=== PATIENT | male | born 1960 | race Caucasian/White ===

== ENCOUNTER 2016-06-09 18:10 | Inpatient (IN) | payer BC ==
[~2016-06-09] VITALS: Ht 175.3 cm; Wt 97.5 kg
--- NOTE | ~2016-06-09 | DS ---
PATIENT'S NAME: MORALES ELY [facility] AGE: 56 Y [address] ROOM: [address] [address] LOCATION: [facility] ADMIT DATE: 06/09/2016 Discharge Summary DISCHARGE DATE: 06/12/2016 FAMILY PHYSICIAN: Nicko Nielsen MD ATTENDING PHYSICIAN: Gordon Noel DIAGNOSES: 1. Ruptured acute appendicitis. 2. Periappendiceal abscess. 3. Hyperglycemia. SUMMARY: Morales Ely is a 56-year-old male, who presented with abdominal pain and low-grade fevers. He had symptoms for 2 to 3 days prior to admission. The patient had a CT scan done that showed evidence of ruptured appendicitis with a 3-cm periappendiceal fluid collection. Dr. Noel evaluated the patient and discussed options for CT-guided drainage with IV antibiotics versus proceeding with surgery. The patient opted to go ahead and proceed with an appendectomy. The patient received Invanz 1 g IV preoperatively. The patient was taken to the operating room for laparoscopic appendectomy. The patient was found to have ruptured appendicitis with periappendiceal abscess. Please see Dr. Noel's operative note for specifics. Postoperatively, the patient is continued on Zosyn 3.375 g IV q.6 hours. He was allowed activity as tolerated. He was started on clear liquid diet. Percocet, ibuprofen, and Tylenol were ordered for pain control. On postop day 1, the patient's pain was tolerable. Nausea was better. He was afebrile. Vital signs were stable. LABORATORY DATA: Lab work showed white blood cell count of 9.7, glucose was 280. Accu-Cheks were ordered along with an insulin sliding scale. Lovenox was ordered for DVT prophylaxis. On postop day 2, the patient was passing flatus. He had some bloating with clear liquids, but he did want some toast. He continued to be afebrile. Hemoglobin A1c returned at 10.3. A special education paraeducator was consulted and diet was advanced to full liquids as tolerated. The special education paraeducator did give the patient a Contour Next Glucometer and instructed the patient on its use. Later that day, the patient was advanced to a regular diabetic diet. On June 12, the patient continued to do well. IBETH drain that had been left in the time of surgery was removed and arrangements were made for the patient to discharge home. DISCHARGE INSTRUCTIONS: Included no restrictions on diet or activity. He is to follow up with Dr. Nielsen in 4 to 8 days and follow up with Dr. Noel in the [facility] in 20 days. DISCHARGE MEDICATIONS: 1. Percocet 5/325 1 to 2 p.o. q. 4 hours p.r.n. pain dispensing 30 with no refills. PATIENT'S NAME: MORALES ELY [facility] AGE: 56 Y [address] ROOM: [address] [address] LOCATION: [facility] ADMIT DATE: 06/09/2016 Discharge Summary DISCHARGE DATE: 06/12/2016 FAMILY PHYSICIAN: Nicko Nielsen MD ATTENDING PHYSICIAN: Gordon Noel 2. Augmentin 875 mg p.o. b.i.d. x6 days dispensing 12 with no refills. 3. Contour Next test strips testing blood sugars twice daily, dispensing 60 and was also prescribed along with the Nataly Microlet Lancets, dispensing 60. Final pathology results show acute appendicitis with necrosis and acute serositis consistent with history of rupture. For specifics on day-to-day care, please refer to the hospital chart. JAS CONTRERAS PA-C FOR GORDON NOEL MD KDK/modl /[id number] CC: Nicko Nielsen MD d: 06/18/16 1227 t: 06/23/16 0711, DISCHARGE SUMMARY
--- NOTE | ~2016-06-09 | HP ---
PATIENT'S NAME: JUVENCIO ELY [facility] AGE: 56 Y [address] ROOM: [place] [address] [place] [facility] [place]: 06/09/2016 History & Physical DISCHARGE DATE: 06/12/2016 FAMILY PHYSICIAN: Nicko Nielsen MD ATTENDING PHYSICIAN: Gordon Lambert Corrected referring physician 06/13/16 AO DATE OF SERVICE: 06/09/2016 REQUESTING PHYSICIAN: Dr. Nielsen. CHIEF COMPLAINT: Ruptured appendicitis. HISTORY OF PRESENT ILLNESS: The patient is a 56-year-old gentleman, who was in his normal state of good health most of Thursday. Thursday evening, he developed some right-sided abdominal pain. The pain was intense enough that he did not sleep well Thursday night. It is a fairly constant pain along the right side of his abdomen. He had no nausea or vomiting but did have decreased appetite. He ran some low-grade fevers over the weekend up into the 99.5 range. Thursday, he felt like the pain was a little bit better, but then this morning, it was worse again. He continued to have some low-grade fevers, and he went in to be evaluated. He denies dysuria or urinary frequency. He has never had pain symptoms like this before. He has not had any diarrhea or constipation problems. He has been passing some flatus and feels like it is decreased. He has had a markedly decreased appetite. He was found to have a minimally elevated white count, and had a CT scan, which showed evidence of ruptured appendicitis with a 3 cm periappendiceal fluid collection. No other obvious abnormalities were seen. PAST MEDICAL HISTORY: Really unremarkable. He denies any chronic health problems. MEDICATIONS: He takes no medications on a regular basis. ALLERGIES: HE HAS NO KNOWN ALLERGIES. PREVIOUS SURGERIES: Include back, lumbar surgery as well as a foot operation. No anesthetic difficulties in the past. SOCIAL HISTORY: PATIENT'S NAME: JUVENCIO ELY [facility] AGE: 56 Y [address] ROOM: [place] [address] [place] [facility] [place]: 06/09/2016 History & Physical DISCHARGE DATE: 06/12/2016 FAMILY PHYSICIAN: Nicko Nielsen MD ATTENDING PHYSICIAN: Gordon Lambert The patient is . He has smoked in the past but not recently. He does drink alcohol on a fairly regular basis. No illegal drug use. FAMILY HISTORY: There is some diabetes in his grandparents, who are both . No other major issues. No family history of inflammatory bowel disease. REVIEW OF SYSTEMS: Fully documented on the nursing assessment form, and it has been reviewed with the patient. PHYSICAL EXAMINATION: GENERAL: The patient is a healthy, well-nourished gentleman. He is sitting up in a chair. He is in no obvious distress or discomfort. He is alert and oriented. VITAL SIGNS: Temperature is 97.8, blood pressure 136/85, pulse 88, respirations 14, sats are 94%. Weight is 210 pounds. HEENT: Normocephalic, atraumatic. Pupils are equal. There is no scleral icterus. External ears, nose, and eyelids are unremarkable. NECK: There are no masses or adenopathy. The trachea is midline. Breathing is nonlabored. LUNGS: Clear to auscultation without rales, rhonchi, or wheezing. HEART: Regular rate and rhythm. ABDOMEN: Soft. There is no organomegaly. It is mildly distended. He does have normoactive bowel sounds. He is extremely tender along the right side of his abdomen. He does have some guarding. No obvious hernias. EXTREMITIES: No peripheral edema. No cyanosis or clubbing. No obvious deformities. He moves all 4 extremities well. LABORATORY DATA: The patient's lab work, CT scans were reviewed. ASSESSMENT: A 56-year-old gentleman with ruptured appendix and early periappendiceal abscess. To me, this looks more like a phlegmon than a well-developed abscess cavity. We discussed the options of CT-guided drainage and IV antibiotics versus surgical appendectomy. I really feel like with the length of time, just going ahead with appendectomy is probably the best option. The patient was agreeable to go ahead with surgery. He will receive preoperative antibiotics, and we will plan on appendectomy this evening. GORDON LAMBERT MD PATIENT'S NAME: JUVENCIO ELY [facility] AGE: 56 Y [address] ROOM: [place] [address] [place] [facility] [place]: 06/09/2016 History & Physical DISCHARGE DATE: 06/12/2016 FAMILY PHYSICIAN: Nicko Nielsen MD ATTENDING PHYSICIAN: Gordon Lambert/lawl /[id number] CC: Nicko Nielsen MD Corrected referring physician 06/13/16 AO D: [id number] T: [id number] HISTORY & PHYSICAL
--- NOTE | ~2016-06-09 | OR ---
PATIENT'S NAME: JUVENCIO ELY [facility] AGE: 56 Y [address] ROOM: [place] [id number] LOCATION: [facility] – [place] ADMIT DATE: 06/09/2016 OR/Procedure Report DISCHARGE DATE: FAMILY PHYSICIAN: PHYSICIAN, UNKNOWN ATTENDING PHYSICIAN: Bassam Noel SURGEON: Bassam Noel MD PRESSURIZER: DATE OF PROCEDURE: 06/09/2016 PREOPERATIVE DIAGNOSIS: Ruptured acute appendicitis. POSTOPERATIVE DIAGNOSIS: Ruptured appendicitis with periappendiceal abscess. PROCEDURE PERFORMED: Laparoscopic appendectomy. ANESTHESIA: General endotracheal. ESTIMATED BLOOD LOSS: 40 mL. SPECIMEN: Appendix. REASON FOR PROCEDURE: The patient is a 56-year-old gentleman, who presented to his local clinic after a 3-day history of progressive right-sided abdominal pain. A CT scan showed evidence of ruptured appendicitis. We discussed options of antibiotics and drainage versus surgery, but ultimately decided to proceed with laparoscopy. FINDINGS: The patient had a severely inflamed and rotten appendix lying along the right gutter with the tip almost up to the hepatic flexure. There was considerable inflammation all around this area as well as a periappendiceal abscess. It was a very difficult appendectomy. PROCEDURE IN DETAIL: The patient was taken to the operating suite and placed in the supine position. After general endotracheal anesthesia was obtained, the abdomen was prepped with ChloraPrep and sterilely draped. Marcaine was infiltrated into the incision site. A 1 cm infraumbilical incision was made. The fascia was grasped and elevated, and a Veress needle was used to obtain a pneumoperitoneum. A 5 mm trocar was then passed across the abdominal wall. Next, a 5 mm left lower quadrant and 12 mm right lower quadrant trocar were both placed under direct visualization. There was no free fluid in the abdomen. The cecum was noted to be adherent to the lateral sidewall with some firm inflammatory changes all along this. Trying to expose this area proved to be quite a challenge. There was so much inflammation along the right pericolic gutter that mobilization of the colon was quite difficult. We found where the appendix was and it was just a large inflammatory mass, but no real PATIENT'S NAME: JUVENCIO ELY [facility] AGE: 56 Y [address] ROOM: [address] [address] LOCATION: [facility] – [place] ADMIT DATE: 06/09/2016 OR/Procedure Report DISCHARGE DATE: FAMILY PHYSICIAN: PHYSICIAN, UNKNOWN ATTENDING PHYSICIAN: Bassam Noel clear tissue planes. The appendix tissue was quite rotten. There was a small periappendiceal abscess that was drained and aspirated. We mobilized some of the terminal ileum, but even that was a challenge with all the inflammation through the area. Eventually, I was able to get a stapler across the base of the appendix, though the tissue was quite thick and inflamed here. We then worked from the base out towards the tip mobilizing the appendix. Most of the mesoappendix was left behind. It was difficult to really be sure what was appendix tissue versus just inflammatory tissue around it. We were able to follow the appendix all the way up, almost to the hepatic flexure where the tip was. The appendix, or at least what I believed to be the appendix, once fully mobilized was placed in an endo-retrieval bag and brought out through the right lower quadrant. We then washed out the right gutter multiple times. As best I could tell, the appendiceal stump was intact. We had obtained a 30- degree scope earlier in the procedure to try to see over the cecum and ascending colon. I did not see any evidence of leak or ongoing bleeding. We did place a 15-[place]i Niranjan drain along the right pericolic gutter where the abscess was. This was brought out through the left lower quadrant opening. This was then sutured in place with a Prolene suture. The fascia in the right lower quadrant was closed with a Vicryl suture. The skin incisions were closed with subcuticular Monocryls. Benzoin, Steri-Strips, and gauze dressings were applied. POSTPROCEDURE PLAN: The patient will be sent to recovery and then to the floor. We will just keep him on clear liquids initially as he may have a bit of an ileus. We will keep him on broad-spectrum antibiotics and leave the drain in place initially. He is certainly at risk of having postoperative infectious complications. MD ARUN PENALOZA/steve /[id number] CC: Nicko Nielsen MD d: 06/10/1624 t: 06/15/16 1016, OPERATIVE SUMMARY
--- NOTE | 2016-06-10 05:27 | NUR ---
Significant Event: ALERT AND ORIENTATED X4. VS WNL ON 2-3 LITERS OF OXYGEN TO KEEP SATS ABOVE 90. HAS METAL MATHEW IN BACK FROM PREVIOUS SURGERY. HAD A LAP APPEY FOR BURST APPENDIX. IBETH DRAIN TO LLQ. SUTURE CLOSURE WITH PARKER/SS/G/TEGA. IV RUNNING WITH D5 NS +20 K @125 IN L) FA. AMBULATED IN [place] WITH 1 ASSIST GAIT BELT. NO COMPLAINTS OF PAIN OR DISCOMFORT. HAS HAD NAUSEA ZOFRAN GIVEN IV X1. Follow up:
--- NOTE | 2016-06-10 05:36 | NUR ---
Significant Event: PATIENT WAS ADMITED FOR A RUPTURED APPY CONFIRMED VIA CT AT [facility]. NPO. VS WNL. ALERT AND ORIENTED X 4 NO COMPLAINTS OF PAIN OR DISCOMFORT WHILE SITTING JUST WHEN AMBULATING IN LLQ. AMBULATES WITH STAND BY ASSIST. AND BROTHER IN ROOM WITH PATIENT. Follow up: AWATING ORDERS
[2016-06-10 06:11] LABS: HEMATOCRIT 35.6 % (37.0-53.0); HEMOGLOBIN 11.7 g/dL (12.0-17.0); MCH 32.1 pg (27.0-34.0); MCHC 32.9 gm/dL (32.0-36.5); MCV 97.5 fl (83.0-98.0); MPV 13.4 fl (9.4-12.4); RBC 3.65 M/uL (4.00-6.00); RDW-CV 12.4 % (11.9-14.6); WBC 9.7 K/uL (4.0-11.0)
[2016-06-10 06:24] LABS: ANION GAP 11.2 (10.0-19.0); BLOOD UREA NITROGEN 18 mg/dL (6-24); CALCIUM 7.8 mg/dL (8.5-10.5); CHLORIDE 105 mMol/L (96-110); CO2 23 mMol/L (22-32); CREATININE 0.9 mg/dL (0.6-1.3); ESTIMATED GFR (MDRD EQUATION) > 60; POTASSIUM 4.2 mMol/L (3.7-5.1); SODIUM 135 mMol/L (135-145)
--- NOTE | 2016-06-10 12:56 | NUR ---
Significant Event: Alert/oriented. Weaned off O2. Up in halls with minimal assist. Bilateral knee pneumatics on. IS at bedside - needs encouraged and reminded to use. Voiding without difficulty. Lap sites x3 with IBETH drain to lower abdomen. IBETH draining serosanguinous drainage. Pain controlled with percocet. Patient has had sips of clears and a couple crackers with the percocet. Dr. Noel plans on keeping him on clears today. Accu checks have been in the 200's - started on sliding scale. Hgb AIC being checked in the AM. Patient has no previous knowledge of blood sugar issues. Dr. Noel told patient on rounds that he would probably be here through for IV antibiotics. Follow up: Encourage activity. Encourage IS use. Offer pain meds routinely.
--- NOTE | 2016-06-10 14:56 | NUR ---
Met with patient and significant other today at bedside. Introduced myself and explained the role of the care management department. Patient's plan is to return home at discharge. He has supports at home and has been independent with his ADL's prior to this hospitalization. Will continue to follow and offer supports.
--- NOTE | 2016-06-11 05:15 | NUR ---
Significant Event: ALERT AND ORIENTED X4 STAND BY ASSIST AMBULATED IN [place] X 2 THIS SHIFT. CLEAR LIQUID DIET. ACHS GAVE 6 UNITS AT HS. BILATERAL KNEE PNEUMATICS ON. IS AT BEDSITE ENCOURAGE PATIENT TO USE. LAP SITES X3 WITH IBETH DRAIN TO LLQ DRAINING SEROSANUINOS DRAINAGE. IV TO L)FA D5NS + 20 POTASSIUM RUNNING @125. PAIN CONTROLLED WITH PERCOCET HAD X2 THIS SHIFT LAST DOSE 0412 X 1 TAB. VOIDING WITHOUT PAIN OR DISCOMFORT. COORPERATIVE WITH CARES. Follow up:
[2016-06-11 06:09] LABS: BASOPHIL % 0.3 %; EOSINOPHIL # 0.1 K/uL (0.0-0.5); EOSINOPHIL % 1.4 %; HEMATOCRIT 32.8 % (37.0-53.0); HEMOGLOBIN 10.6 g/dL (12.0-17.0); IMMATURE GRANULOCYTE # 0.1 K/uL (0.0-0.3); IMMATURE GRANULOCYTE % 0.8 %; LYMPHOCYTE # 1.1 K/uL (0.8-4.0); LYMPHOCYTE % 15.5 %; MCH 31.6 pg (27.0-34.0); MCHC 32.3 gm/dL (32.0-36.5); MCV 97.9 fl (83.0-98.0); MONOCYTE # 0.7 K/uL (0.0-1.0); NEUTROPHIL # (ANC) 5.4 K/uL (1.4-9.0); NRBC % 0 /100WBC (0-0.00); PLATELET COUNT 141 K/uL (150-450); RBC 3.35 M/uL (4.00-6.00); RDW-CV 12.4 % (11.9-14.6); WBC 7.4 K/uL (4.0-11.0)
[2016-06-11 06:19] LABS: ALBUMIN 2.2 gm/dL (3.5-5.0); ANION GAP 12.1 (10.0-19.0); BLOOD UREA NITROGEN 12 mg/dL (6-24); CALCIUM 7.8 mg/dL (8.5-10.5); CHLORIDE 103 mMol/L (96-110); CO2 24 mMol/L (22-32); CREATININE 0.9 mg/dL (0.6-1.3); ESTIMATED GFR (MDRD EQUATION) > 60; PHOSPHORUS 2.4 mg/dL (2.5-4.9); POTASSIUM 4.1 mMol/L (3.7-5.1); SODIUM 135 mMol/L (135-145)
--- NOTE | 2016-06-11 10:00 | NUR ---
Diabetes Consult: Patient is newly diagnosed with Type II diabetes. His A1C is 10.3%. Patient has no family history of diabetes and was surprised to learn of his diagnosis. The patient was provided with a diabetes education booklet. Education regarding the progression of Type II diabetes, target goals, preventions of complications and blood glucose testing was reviewed. The patient was given a Eyeonplay NExt glucometer. He was instructed to test blood sugars fasting and a 2 hour post prandial every day. He is to take his blood sugars readings to Dr. Nielsen in follow up for review. Recommendation was written to consider starting Metformin 500 mg twice daily. The patient may need a larger dose, however, recommend low dose to start to assess tolerance and monitor for adverse effects such as diarrhea. Will continue to provide education to the patient during his hospital stay.
--- NOTE | 2016-06-11 17:35 | NUR ---
Significant Event:Is A/O.Has IV.Can be SL when zoysn done.medical educator was in today.IV Lt.arm.Is on soft diet.Had percocet at 0930 & 1420.Has been up in chair & amb in halls.Passing flatus.IBETH drain LLQ draining serous drng.Maybe home tomorrow. Follow up:
--- NOTE | 2016-06-12 04:56 | NUR ---
Significant Event: AAOX3. ADA DIET, SOFT. SBA. IV ATB INFUSING, PIV LFA. IBETH DRAIN INTACT WITH 50ML OUT DURING SHIFT. PT NEW DIABETIC (HS BS 160, 2U ADMINISTERED.) TO D/C WITH ORAL MEDICATION VS INSULIN. PT HAS NOT HAD A BM SINCE THURSDAY, BUT IS PASSING GAS. 2 NORCO ADMINISTERED X1, LAST AT 2204. PT RESTED WELL THROUGHOUT SHIFT. Follow up: PAIN. AMBULATION
[2016-06-12] MEDS ORDERED: PERCOCET 5-3251 EACH PO (10:16)
[2016-06-12] MEDS ORDERED: AMOX TR-K CLV1 EAC4 PO (10:17)
--- NOTE | 2016-06-12 12:00 | NUR ---
D: Orders received for the patient to be discharged to home today. I: Dismissal instructions were prepared and reviewed with the patient virtually. The following information was discussed including Kr[employer] teaching sheets provided: Appendectomy Laparoscopic-Discharge instructions, High blood sugar (Hyperglycemia), Understanding Type 2 diabetes, Augmentin, Perocet, and Preventing DVT. Reviewed follow up appointments with primary care physician and need to record blood sugar to take to his appointment also follow up with Dr. Noel in [place] [facility]. New prescriptions were discussed with the patient. R: The patient verbalized understanding of the dismissal education at the time of teaching with no further questions. P: The above information was shared with the primary nurse that the dismissal education was completed. The patient is ready for discharge to the front door via wheel chair by nursing staff when ride is here.
--- NOTE | 2016-06-12 12:59 | NUR ---
Significant Event: Patient up ad dana in room. Dr. Noel in and removed IBETH drain. Patricio Brewster RN virtual nurse, and Patricio Sutherland RN both spoke with patient on dismissal and blood sugars. Patient denies pain/nausea. Patient taken to the front doors for dismissal where FIELD LABORATORY OPERATOR walked with patient out to the front doors.
== END 2016-06-12 13:00 | disposition disaster alternative care site (69) | DRG 340 ==
LOC: GMSU 19:38
PROVIDERS: Physician Assistant; ADMIT Surgery
PROC: 0DTJ4ZZ Resection of Appendix, Percutaneous Endoscopic Approach (ICD-10-PCS; principal; 2016-06-09)
DX: K35.2 Acute appendicitis with generalized peritonitis (principal); E11.65 Type 2 diabetes mellitus with hyperglycemia; Z87.891 Personal history of nicotine dependence
CPT/HCPCS: J1335; J1650; J2270; J2405; J2543; J3480; J7030; J7050

== ENCOUNTER 2016-11-27 19:24 | Inpatient (IN) | payer BC ==
[~2016-11-27] VITALS: Ht 172.7 cm; Wt 90.1 kg
--- NOTE | ~2016-11-27 | OR ---
PATIENT'S NAME: JUVENCIO ELY [facility] AGE: 56 Y [address] ROOM: [address] [address] LOCATION: [facility] – [place] ADMIT DATE: 11/27/2016 OR/Procedure Report DISCHARGE DATE: 12/01/2016 FAMILY PHYSICIAN: Nicko Nielsen MD ATTENDING PHYSICIAN: Annamaria Kaplan SURGEON: Bassam Noel MD RESIN REMOVER: DATE OF PROCEDURE: 11/27/2016 PREOPERATIVE DIAGNOSIS: Possible appendiceal stump inflammation. POSTOPERATIVE DIAGNOSIS: Possible appendiceal stump inflammation. PROCEDURE PERFORMED: Exploratory laparoscopy with washout of infection and resection of possible appendiceal stump. REASON FOR PROCEDURE: The patient is a 56-year-old gentleman, who underwent a laparoscopic appendectomy about six months ago for a difficult ruptured appendix. He had actually recovered fairly well from this, but then one day ago had an abrupt onset of severe right lower quadrant pain. A CT scan showed some inflammation and a minimal amount of free fluid right around the tip of the cecum. No drainable abscess. No obvious source for this. After further review, there was concern of possible inflammation of the appendiceal stump if there was any left behind. We could not really see an appendiceal stump, but it had a clinical picture of this. Due to his pain, we decided to proceed with laparoscopy. FINDINGS: We were able to find a 1.5 cm area that was very firm chronically inflamed area along the lateral wall of the cecum. We were able to dissect out a structure that may have been an appendiceal stump though it is difficult to say for sure with the amount of scarring and inflammation present. PROCEDURE IN DETAIL: The patient was taken to the operating suite and placed in the supine position. After general endotracheal anesthesia was obtained, the abdomen was prepped with ChloraPrep and sterilely draped. Marcaine was infiltrated into the incision sites. A 1 cm infraumbilical incision was made. The fascia was grasped and elevated and a Veress needle was used to obtain a pneumoperitoneum. 5 mm trocar was then passed across the abdominal wall. Next, a 5 mm left lower quadrant and 12 mm right lower quadrant trocar were placed under direct visualization. The cecum was densely adherent to the lateral abdominal wall. Palpation of this revealed a firm inflammatory mass along the lateral aspect of the cecum. We could see little green exudate of reactive fluid in the area and is able to mobilize some adhesions from the terminal ileum and began mobilizing the posterior portion of the cecum. We were able to bluntly mobilize the inflamed area of cecum from the lateral side PATIENT'S NAME: JUVENCIO ELY [facility] AGE: 56 Y [address] ROOM: [address] [address] LOCATION: [facility] – [place] ADMIT DATE: 11/27/2016 OR/Procedure Report DISCHARGE DATE: 12/01/2016 FAMILY PHYSICIAN: Nicko Nielsen MD ATTENDING PHYSICIAN: Annamaria Kaplan. These were quite densely adherent to each other. Once we had the cecum mobilized, we were able to explore this area better. There was a 2 cm firm inflamed mass along the lateral aspect of the cecum where it had been adherent to the lateral wall. No real clear tissue planes were identified. We began trying to mobilize this though it proved to be a difficult process. We were able to divide through some softer fatty tissue surrounding the inflammatory mass and eventually free up some of it. It appeared there was a very short tubular structure extending from it. It was very difficult to know whether this might be a very short appendiceal stump or possibly just a fold of the colon. Once I had most the small inflammatory area mobilized, we examined the cecum carefully to make sure there was no injury. We then fired an endoscopic KHANH stapler across the cecum in this area dividing what was either the appendiceal stump or possibly a fold of the cecum. Staple line was intact. There was no bleeding from it. Specimen was placed in a retrieval bag and brought out through the right lower quadrant. We did leave a 15-[place] Niranjan drain through one of the trocar sites and left this in the right lower quadrant. This was sutured in place with a Prolene suture. The trocars were withdrawn. The fascia in the right lower quadrant was closed with a Vicryl suture. The skin incisions were closed with subcuticular Monocryl's. Benzoin, Steri-Strips, and gauze dressings were applied. POSTPROCEDURE PLAN: The patient will be sent to recovery and then to the floor. We will gradually advance his diet as tolerated. He will receive pain medicines as necessary. I think with the amount of infection present, we will plan on treating this like a ruptured appendix and keep him on IV antibiotics until he is afebrile and white count has returned to normal. We will monitor the output from the drain closely. MD ARUN PENALOZA/steve /[id number] d: 12/01/162137 t: 12/08/162119, OPERATIVE SUMMARY
--- NOTE | ~2016-11-27 | DS ---
PATIENT'S NAME: JUVENCIO ELY [facility] AGE: 56 Y [address] ROOM: [address] [place], [place] [address] LOCATION: [facility] [place] ADMIT DATE: 11/27/2016 Discharge Summary DISCHARGE DATE: 12/01/2016 FAMILY PHYSICIAN: Nicko Nielsen MD ATTENDING PHYSICIAN: Annamaria Kaplan ADMITTING PHYSICIAN: Ambrocio Veliz MD FAMILY PHYSICIAN: Nicko Nielsen MD CONSULTING PHYSICIAN: Dr. Bassam Noel, General Surgery. DISCHARGE DIAGNOSES: 1. Sepsis. 2. Right lower quadrant infection, possible appendectomy stump infection. PROCEDURES PERFORMED: Laparoscopy on 11/28/[address] Noel. DISCHARGE MEDICATIONS: 1. Alvord 5/325, 1 or 2 tablets p.o. q.4 hours p.r.n. moderate pain. 2. Chlorhexidine q.i.d. 3. Align or generic equivalent to be taken as directed per box. 4. Augmentin 875 mg 1 tablet p.o. b.i.d. x7 days. PERTINENT RADIOLOGIC DATA: 1. X-ray of the chest on 11/27/2016 was unremarkable. Heart size and pulmonary vascularity within normal limits. 2. X-ray of the abdomen showed no free air. There were several surgical clips in the right lower quadrant of the abdomen likely associated with the previous appendix resection. They also noted surgery of the lower lumbar spine and upper sacrum with metallic hardware present. 3. CT scan of the abdomen and pelvis with contrast on 11/28/2016 showed stump appendicitis with phlegmon within the iliac fossa. PERTINENT LABORATORY DATA: Upon admission, white count was 19,000, hemoglobin 12.9, hematocrit 37.6, platelets are 24,000, and white count trended down nicely. On November 30, it was 10.6, hemoglobin 10.2, and platelets 113,000. Lactate level on the was 1.6. This was really stable throughout his hospitalization at its braxton was 1.5, on the was 1.6. Procalcitonin on of 0.78. This bumped to 1.40 on the and 1.6 on the 29 of November. The patient's electrolytes and chemistry panel was really unremarkable throughout his hospitalization. UA was negative for infection. HOSPITAL COURSE: Please refer to the admitting H and P dictated by Dr. Veliz. The patient was admitted and placed on the sepsis protocol. Morphine and PATIENT'S NAME: JUVENCIO ELY [facility] AGE: 56 Y [address] ROOM: [id number] [place], [place] [address] LOCATION: [facility] [place] ADMIT DATE: 11/27/2016 Discharge Summary DISCHARGE DATE: 12/01/2016 FAMILY PHYSICIAN: Nicko Nielsen MD ATTENDING PHYSICIAN: Annamaria Kaplan Dilaudid along with fentanyl were used for pain control. He was placed on IV ciprofloxacin and Flagyl. General Surgery was consulted. Labs were drawn according to the sepsis protocol along with a CT of the abdomen being ordered. Ultimately, he was seen by Surgery on the , who took him to the OR for exploratory laparoscopy. In the OR, there were findings of severely inflamed tissue around the cecum. The patient was placed on Invanz 1 g daily on the , and the Cipro and Flagyl were discontinued at that time. The patient recovered well from exploratory laparoscopy, gained clinically. Pain was essentially gone on the . A IBETH tube was left to monitor for drainage particularly fecal material. Serosanguineous materials were collected in the IBETH tube. The patient had an uneventful weekend, remained afebrile, was up, ambulatory, eating, drinking, and stooling. Ultimately, it was felt the patient was stable for discharge and it was postoperative day #3 on 12/01/2016. At that point, the IBETH was removed. Dr. Noel has made arrangements for him to follow up with him in the clinic in [place] on 12/17/2016. He did decide to cover Mr. Ely with Augmentin for one week's time frame. He is to notify his physician should he begin to have fevers, abdominal pain, and the patient voices understanding. DISPOSITION: The patient was discharged to his own home on 12/01/2016. He should follow up with Dr. Noel in [place] on 12/17/2016 at 10:00 a.m. He should seek medical attention should he become febrile, have recurrent abdominal pain. The patient voiced understanding. Thank you for allowing us to help care for this patient. Discharge of this patient took less than 30 minutes. MARLY B SHARON RUSSELL FOR MD NIKHIL MCKEON/lawl /[id number] CC: MD Bassam Zhu MD d: 12/01/16 2319 t: 12/04/16 1547, DISCHARGE SUMMARY
--- NOTE | ~2016-11-27 | HP ---
PATIENT'S NAME: JUVENCIO ELY [facility] AGE: 56 Y [address] ROOM: [address] [place], [place] [address] LOCATION: [facility] [place] ADMIT DATE: 11/27/2016 History & Physical DISCHARGE DATE: FAMILY PHYSICIAN: PHYSICIAN, UNKNOWN ATTENDING PHYSICIAN: Annamaria HUNTER DATE OF SERVICE: CHIEF COMPLAINT: Right lower quadrant pain. HISTORY OF PRESENT ILLNESS: This is a 56-year-old male, who has a history remarkable for ruptured acute appendicitis with periappendiceal abscess back in May 2016, underwent laparoscopic appendectomy by Dr. Noel. The patient recovered well after the surgery. The patient says that this morning he woke up with pain in the right lower quadrant and he then had some breakfast where he ate some cereal and the pain got worse in the right lower quadrant. As the day progressed, the pain in the right lower quadrant got even worse and he felt some nausea, but he did not vomit. He had a normal bowel movement, which was this morning and he also felt chills and febrile. Because of this, the patient came here for evaluation for the worsening of the right lower quadrant abdominal pain. REVIEW OF SYSTEMS: As mentioned in the history of present illness. All other systems were reviewed and were negative except those mentioned in the history of present illness. PAST MEDICAL HISTORY: History of ruptured appendicitis with periappendiceal abscess status post laparoscopic appendectomy back in May 2016. ALLERGIES: NONE. HOME MEDICATIONS: None. SOCIAL HISTORY: He was a former smoker very lightly, few cigarettes per day for few years, but he quit already. He does drink alcohol, but he says socially. He denies any alcohol abuse or alcohol withdrawal. He denies any illegal drug use. FAMILY HISTORY: PATIENT'S NAME: JUVENCIO ELY [facility] AGE: 56 Y [address] ROOM: [address] [place], [place] [address] LOCATION: [facility] [place] ADMIT DATE: 11/27/2016 History & Physical DISCHARGE DATE: FAMILY PHYSICIAN: PHYSICIAN, UNKNOWN ATTENDING PHYSICIAN: Annamaria HUNTER He states that his parents are healthy without important past medical history. He also denies any inflammatory bowel disease in the family. PAST SURGICAL HISTORY: 1. Status post laparoscopic appendectomy back in May 2016. 2. Lumbar surgery in the past. 3. Foot surgery in the past. PHYSICAL EXAMINATION: VITAL SIGNS: At the time of my evaluation, temperature 100.8, heart rate 90, respirations 20, blood pressure 125/53, and saturation 95% on room air. GENERAL APPEARANCE: Alert and oriented x3. Currently, the patient is in moderate amount distress from the abdominal pain. HEENT: Pupils equal, round, and reactive to light. Extraocular muscles intact. Anicteric sclerae. Nasal turbinates are normal bilaterally. Dry oral mucosa. NECK: No JVD. CARDIOVASCULAR: Tachycardic. Regular rate and rhythm. Normal S1 and S2. No murmur. No rubs. No gallops. RESPIRATORY: Clear to auscultation. No rales. No rhonchi. No wheezing. No crackles. ABDOMEN: Guarding due to pain. Nondistended. Painful to palpation diffusely more in the right lower quadrant. Bowel sounds present. No mass. Positive for rebound tenderness. Htxe-vz-eutsaaur guarding and wtmx-ko-zjfwwpuv abdominal rigidity from the pain and from the voluntary contracture of the muscle due to pain. EXTREMITIES: No edema in the upper or lower extremities. SKIN: No ulcer, no rash, and no cyanosis. NEUROLOGIC: Grossly nonfocal. SKIN: No ulcer, no rash, and no cyanosis. LABORATORY DATA: Currently, all labs are pending. IMAGING STUDIES: CT of the abdomen and pelvis with IV and p.o. contrast from the outside facility based on the preliminary report showed that there are postoperative changes in the right lower quadrant with some surgical clips present. There is indistinctness of the fat and inflammatory appearing changes near the site of the surgical clips with small amount of free fluid present. This is of uncertain etiology. Leak from the previous appendectomy site will be consideration. There is some wall thickening involving the adjacent colon. Inflammatory bowel disease colitis will be consideration. There is no focal fluid collection to suggest abscess. There is no free air. There is no bowel dilatation. Portion of the colon is contracted and difficult to evaluate. PATIENT'S NAME: JUVENCIO ELY [facility] AGE: 56 Y [address] ROOM: [place] [address] LOCATION: [facility] [place] ADMIT DATE: 11/27/2016 History & Physical DISCHARGE DATE: FAMILY PHYSICIAN: PHYSICIAN, UNKNOWN ATTENDING PHYSICIAN: Annamaria HUNTER ASSESSMENT AND PLAN: 1. Regarding his sepsis/severe sepsis (currently lactic acid and procalcitonin are pending): This is secondary to right lower quadrant abdominal pain, differential could be colitis. I already spoke to the on- call general surgeon, Dr. Noel. I talked about the case in detail about the finding that the patient has abdominal rigidity on examination due to the pain and guarding due to the pain in the abdominal examination. Dr. Noel has already seen the CT scan and did not appreciate any free air and free fluid that was over there, was part of inflammation given that there is no free air and there was no abscess and given that the surgery was five months ago and the appendix was already removed laparoscopically. Currently, there is no urgent indication to take the patient to the operation room for abdominal exploration. Per Dr. Noel, the recommendation will be to continue with medical management with n.p.o., IV fluids and also pain control and also with antibiotics for colitis coverage and repeat another CT scan of the abdomen and pelvis in the morning and Dr. Noel will be seeing the patient in the morning. As mentioned before currently, there is no solid indication for abdominal laparotomy exploration given that there is no free air, there is no abscess, and most likely the free fluid and inflammation in the right lower quadrant area is from the colitis as of now. We will continue with the medical management and awaiting Dr. Noel's evaluation in the morning. The patient will be watched very closely with vital signs check every hour. Will be getting IV fluids and I will use IV ciprofloxacin and also IV Flagyl and also IV morphine p.r.n. and IV Dilaudid p.r.n. for pain control. IV Zofran p.r.n. for nausea. Tylenol for fever. Further plan will depend on clinical course. We will get also 2 sets of blood cultures. Currently waiting for the lactic acid and procalcitonin to determine this is sepsis or severe sepsis. Either way, I am going to repeat the lactic acid within 6 hours of initial lactic acid. We will check UA as well. 2. Regarding his deep vein thrombosis prophylaxis: He will be getting compression devices. 3. He is a full code. Time spent in care on the day of admission 45 minutes where 10 minutes was spent on chart review and the remainder of the time was spent on interview and physical examination and also on counseling. This time also includes placing a phone call to on-call general surgeon, Dr. Noel to talk about the case and about the finding of the abdominal rigidity on my examination and the plan of care as mentioned above by Dr. Noel. The counseling part includes going over the plan of care with the patient and the patient's family member and I explained the plan of care in detail to the family member and I also answered all the questions to their satisfaction. Further plan will depend on clinical course. PATIENT'S NAME: JUVENCIO ELY [facility] AGE: 56 Y [address] ROOM: [place] [address] LOCATION: [facility] [place] ADMIT DATE: 11/27/2016 History & Physical DISCHARGE DATE: FAMILY PHYSICIAN: PHYSICIAN, UNKNOWN ATTENDING PHYSICIAN: Annamaria HUNTER MAYO DONAHUE MD CC/modl /[id number] D: [id number] T: [id number] HISTORY & PHYSICAL
[~2016-11-27 19:24] MED LIST: AMOX TR-K CLV1 EAC4 PO; PERCOCET 5-3251 EACH PO
[2016-11-28 00:46] LABS: BASOPHIL # 0.1 K/uL (0.0-0.2); BASOPHIL % 0.3 %; EOSINOPHIL % 0.1 %; HEMATOCRIT 37.6 % (37.0-53.0); HEMOGLOBIN 12.9 g/dL (12.0-17.0); IMMATURE GRANULOCYTE # 0.2 K/uL (0.0-0.3); IMMATURE GRANULOCYTE % 1.2 %; LYMPHOCYTE # 1.3 K/uL (0.8-4.0); LYMPHOCYTE % 6.6 %; MCH 32.9 pg (27.0-34.0); MCHC 34.3 gm/dL (32.0-36.5); MCV 95.9 fl (83.0-98.0); MONOCYTE # 1.3 K/uL (0.0-1.0); MONOCYTE % 6.9 %; MPV 12.9 fl (9.4-12.4); NEUTROPHIL # (ANC) 16.2 K/uL (1.4-9.0); NEUTROPHIL % 84.9 %; NRBC % 0 /100WBC (0-0.00); PLATELET COUNT 124 K/uL (150-450); RBC 3.92 M/uL (4.00-6.00); RDW-CV 14.1 % (11.9-14.6)
[2016-11-28 00:56] LABS: INR - (THERAPEUTIC) 1.02 (0.92-1.07); PROTIME 10.7 SECONDS (9.8-11.4); PTT 28 SECONDS (25-32)
[2016-11-28 01:12] LABS: ALBUMIN 3.3 gm/dL (3.5-5.0); ANION GAP 10.8 (10.0-19.0); CALCIUM 8.3 mg/dL (8.5-10.5); CREATININE 1.2 mg/dL (0.6-1.3); POTASSIUM 3.8 mMol/L (3.7-5.1); TOTAL BILIRUBIN 2.4 mg/dL (0.0-1.5); TOTAL PROTEIN 7.1 g/dL (6.0-8.4)
[2016-11-28 07:24] LABS: BILIRUBIN URINE NEGATIVE (NEGATIVE); BLOOD URINE NEGATIVE /UL (NEGATIVE); COLOR URINE YELLOW (YELLOW); GLUCOSE URINE NEGATIVE (NEGATIVE); KETONE URINE NEGATIVE (NEGATIVE); LEUKOCYTES URINE NEGATIVE /UL (NEGATIVE); NITRITE URINE NEGATIVE (NEGATIVE); PH URINE 6.5 (4.0-8.0); PROTEIN URINE 15 mg/dL (NEGATIVE); SPEC GRAVITY URINE 1.015 (1.003-1.035); TURBIDITY URINE CLEAR (CLEAR); UROBILINOGEN URINE NORMAL (NORMAL)
[2016-11-28 07:31] LABS: BACTERIA URINE NEGATIVE (NEGATIVE); EPITHELIAL URINE RARE #/HPF (NEGATIVE); RBC URINE NEGATIVE #/HPF (NEGATIVE); WBC URINE RARE #/HPF (NEGATIVE)
[2016-11-28 08:36] LABS: HEMATOCRIT 35.3 % (37.0-53.0); MPV 12.7 fl (9.4-12.4); RBC 3.64 M/uL (4.00-6.00); RDW-CV 13.8 % (11.9-14.6); WBC 17.6 K/uL (4.0-11.0)
[2016-11-28 08:47] LABS: CALCIUM 7.8 mg/dL (8.5-10.5); CREATININE 1.1 mg/dL (0.6-1.3)
[2016-11-29 05:18] LABS: BASOPHIL % 0.1 %; HEMATOCRIT 32.4 % (37.0-53.0); HEMOGLOBIN 10.8 g/dL (12.0-17.0); IMMATURE GRANULOCYTE # 0.7 K/uL (0.0-0.3); IMMATURE GRANULOCYTE % 4.3 %; LYMPHOCYTE # 0.6 K/uL (0.8-4.0); MCH 32.3 pg (27.0-34.0); MCHC 33.3 gm/dL (32.0-36.5); MONOCYTE # 0.8 K/uL (0.0-1.0); MONOCYTE % 5.4 %; NEUTROPHIL # (ANC) 13.4 K/uL (1.4-9.0); NEUTROPHIL % 86.2 %; NRBC % 0 /100WBC (0-0.00); PLATELET COUNT 118 K/uL (150-450); RBC 3.34 M/uL (4.00-6.00); RDW-CV 13.6 % (11.9-14.6); WBC 15.6 K/uL (4.0-11.0)
[2016-11-29 05:38] LABS: ALBUMIN 2.4 gm/dL (3.5-5.0); ANION GAP 10.3 (10.0-19.0); MAGNESIUM 2.1 mg/dL (1.8-2.6); POTASSIUM 4.3 mMol/L (3.7-5.1); TOTAL PROTEIN 6.2 g/dL (6.0-8.4)
[2016-11-29 05:43] LABS: TOTAL BILIRUBIN 1.4 mg/dL (0.0-1.5)
[2016-11-30 04:42] LABS: HEMOGLOBIN 10.2 g/dL (12.0-17.0); MCH 33.3 pg (27.0-34.0); MPV 12.9 fl (9.4-12.4); PLATELET COUNT 113 K/uL (150-450); RBC 3.06 M/uL (4.00-6.00); RDW-CV 13.9 % (11.9-14.6); WBC 10.6 K/uL (4.0-11.0)
[2016-11-30 05:31] LABS: ABSOLUTE NEUTROPHIL CT (ANC) 9.4 K/uL (1.4-9.0); BANDED NEUTROPHIL # 1.4 K/uL (0.0-0.1); BANDED NEUTROPHILS % 13 %; LYMPHOCYTE # 0.8 K/uL (0.8-4.0); LYMPHOCYTE % 8 %; MONOCYTE # 0.2 K/uL (0.0-1.0); SEGMENTED NEUTROPHIL # 8.1 K/uL (1.4-9.0); SEGMENTED NEUTROPHIL % 76 %
[2016-12-01] MEDS ORDERED: NORCO 5-325 TA1 EACH PO (10:41)
[2016-12-01] MEDS ORDERED: PERIDEX15 ML PO (10:42)
[2016-12-01] MEDS ORDERED: ALIGN4 MG PO (10:45)
[2016-12-01] MEDS ORDERED: AUGMENTIN 875-1 EACH PO (10:47)
== END 2016-12-01 12:15 | disposition disaster alternative care site (69) | DRG 855 ==
LOC: GMSU 20:13
PROVIDERS: Internal Medicine; Physician Assistant; ADMIT Internal Medicine
PROC: 0WJG4ZZ Inspection of Peritoneal Cavity, Percutaneous Endoscopic Approach (ICD-10-PCS; principal; 2016-11-27)
DX: A41.9 Sepsis, unspecified organism (principal); K37 Unspecified appendicitis; K52.9 Noninfective gastroenteritis and colitis, unspecified; R65.20 Severe sepsis without septic shock; Z87.891 Personal history of nicotine dependence
CPT/HCPCS: J0744; J1100; J1170; J1335; J2001; J2270; J2405; J2550; J3010; J3480; J7030; J7050; Q9967